=== PATIENT | female | born 1930 | race Caucasian/White ===

== ENCOUNTER 2016-12-08 15:59 | Inpatient (IN) ==
[2016-12-08] MEDS ORDERED: ZOFRAN IV ONE (16:14)
[2016-12-08] MEDS ORDERED: MORPHINE IV ONE (16:14)
--- NOTE | 2016-12-08 17:08 | Diag Imaging Result Doc PS360 ---
EXAM: XRAY PELVIS W/HIP 2-3VW RT INDICATION: fall, evaluation for left hip dislocation/fracture TECHNIQUE: 3 views COMPARISON: None. FINDINGS: There are degenerative changes at the acetabular roofs, worse on the right. There are extensive degenerative changes involving the lower lumbar spine. There is no discrete fracture, dislocation, or significant intrinsic osseous lesion involving the pelvis or right hip, otherwise. The surrounding soft tissues are essentially unremarkable. IMPRESSION: Chronic changes as described. No definite acute osseous abnormality involving the pelvis or right hip. Please see separate left femur radiograph report for details of a left hip fracture. Electronically signed by Mars Holland 12/08/2016 5:06 PM
[2016-12-08 17:11] LABS: INR 1.07; PROTIME 11.3 Seconds (9.2-11.7)
--- NOTE | 2016-12-08 17:11 | Diag Imaging Result Doc PS360 ---
EXAM: FEMUR MIN 2 VIEWS LEFT INDICATION: fall, evaluation for left hip dislocation/fracture TECHNIQUE: 4 views COMPARISON: None. FINDINGS: There is a mildly comminuted intertrochanteric fracture involving the left hip with a few mildly displaced fragments. No other discrete fracture or dislocation is appreciated. There are degenerative changes at the knee and left acetabular roof. The surrounding soft tissues are essentially unremarkable. IMPRESSION: Left hip intertrochanteric fracture as described. Electronically signed by Mars Holland 12/08/2016 5:08 PM
--- NOTE | 2016-12-08 17:12 | Diag Imaging Result Doc PS360 ---
EXAM: CHEST-1 VIEW INDICATION: Possible hip fracture TECHNIQUE: One view COMPARISON: 05/03/2014 FINDINGS: The lungs are grossly clear. There is no discrete pleural fluid collection or pneumothorax. The cardiomediastinal silhouette is essentially unremarkable accounting for magnification from AP technique. The central vasculature is grossly unremarkable. IMPRESSION: No evidence of acute pathology by plain radiograph. Electronically signed by Mars Holland 12/08/2016 5:10 PM
[2016-12-08 18:00] LABS: URINE SOURCE CATH
--- NOTE | 2016-12-08 18:01 | PROVIDER DOCUMENTATION ---
This chart was entered by Saige Melton Scribe, acting as scribe for Doroteo Patel Jr, MD. HPI-Musculoskeletal Pain/Inj - GENERAL Chief Complaint: Fall Stated Complaint: fall, L thigh pain Time Seen by Provider: 12/08/16 16:00 Source: patient, family (daughters) - HX OF PRESENT ILLNESS-MUSKULOSKELTAL Nature of Presenting Problem: Pt is 86 y/o F presents to the ED with L hip pain. Pt states was getting up to go to the bathroom and black out and fell on L hip. Pt's daughter states had an appointment with Dr. Reyes for phlebotomy. Pt's daughter states she is normally weak after. Quality of Pain: reports: aching Severity in ED: moderate Onset/Duration: just prior to arrival Timing: still present Modifying Factors: improves with: nothing Any recent injury?: Yes (fall ) Locality of Occurance: Home Similar Symptoms Previously?: Yes Recently seen or treated by another doctor?: No - FALL INJURY Location of Pain/Injury: reports: other (L hip) Pain Radiation: reports: no radiation Reason for Fall: reports: fainted Symptoms prior to fall:: reports: none Loss of Consciousness: brief (seconds) Injury Associated Symptoms: reports: unable to bear weight, weakness, trouble walking. denies: arm pain, back/neck pain, chest pain, diaphoresis, dizziness, headaches, joint pain, muscle aches, nausea, puncture wound, shortness of breath , sensory/motor loss, snap/crack/pop sensation, pain with inspiration, vomiting - HIP/PELVIS PAIN/INJURY Hip Pain Location: reports: hip (L) Pain Radiation: reports: no radiation Context / Method of Injury: reports: fall Associated Symptoms: reports: weakness in legs/feet (L). denies: loss of bladder control, loss of bowel control, lower back pain, muscle spasms, numbness in legs/feet, sensory/motor loss, tingling in legs/feet Review of Systems - Adult - REVIEW OF SYSTEMS - ADULT Constitutional: reports: no symptoms reported Eyes: reports: no symptoms reported Ears, Nose, Mouth & Throat: reports: no symptoms reported Cardiovascular: reports: no symptoms reported Respiratory: reports: no symptoms reported Gastrointestinal: reports: no symptoms reported Genitourinary: reports: no symptoms reported Musculoskeletal: reports: other (L hip pain). denies: back pain, neck pain Integumentary: reports: no symptoms reported Neurological: reports: syncope. denies: dizziness/vertigo, headache/migraines, seizure, slurred speech Psychiatric: reports: no symptoms reported Endocrine: reports: no symptoms reported Hematologic/Lymphatic: reports: no symptoms reported Allergic/Immunologic: reports: no symptoms reported All Other Systems: Reviewed and Negative Past History - Adult - PAST MEDICAL HISTORY-ADULT Review of Records: reports: Nursing Assessment Review, Medications Reviewed, Social history reviewed & non-contributory. Major Childhood Illnesses: reports: denies history Cardiovascular: reports: HTN Respiratory: reports: denies history Gastrointestinal: reports: denies history Obstetrical/Gynecological: reports: denies history Genitourinary: reports: denies history Musculoskeletal: reports: denies history Neurological: reports: denies history Endocrine/Immune: reports: Diabetes, other (polycythemia vera) Other Conditions: reports: denies history - PRIOR SURGERIES/PROCEDURES Surgical/Procedure History: reports: cholecystectomy - IMMUNIZATION STATUS Childhood Immunizations: See Nurse Assessment Flu Vaccine: See Nurse Assessment - FAMILY HISTORY Family History: reviewed, not pertinent - SOCIAL HISTORY Smoking: denies Substance Use: denies Living Situation: family Physical Exam-Injury Related - Physical Exam-Injury Related Initial Vital Signs Reviewed: Yes General Appearance: appears well, alert, no apparent distress Eyes: PERRL/EOMI, pink conjunctivae Head, Ears, Nose, Mouth & Throat: normocephalic/atraumatic, moist mucous membranes, normal ENT inspection Neck: non-tender, full range of motion, supple, normal inspection Respiratory: chest non-tender, lungs clear, normal breath sounds Cardiovascular: normal peripheral pulses, regular rate, rhythm Abdominal Exam: normal bowel sounds, non tender, soft Lymphatic: no adenopathy Back Exam: normal inspection, no CVA tenderness, no vertebral tenderness Extremity: deformity (L hip), tenderness (L hip), other (limited ROM to L hip). negative: normal range of motion, normal gait Integumentary: normal color, warm/dry Neurologic: grossly normal Psych/Mental Status: normal mood/affect, oriented x 3 Progress - PLAN OF CARE/RESULTS Progress/Plan/Lab Results: Vital Signs - 8 hr 12/08/16 16:13 Temperature 98.9 F Pulse Rate 71 Respiratory Rate 20 Blood Pressure 123/78 O2 Sat by Pulse Oximetry 97 Laboratory Results - last 24 hr 12/08/16 16:29 PT 11.3 INR 1.07 Orders Category Date Time Status CHEST-1 VIEW [RAD] Stat Exams 12/08/16 16:51 Completed FEMUR MIN 2 VIEWS LEFT [RAD] Stat Exams 12/08/16 16:16 Completed XRAY PELVIS W/HIP 2-3VW RT [RAD] Stat Exams 12/08/16 16:14 Completed PROTIME WITH INR [COAG] Stat Lab 12/08/16 16:29 Completed UA NIMS W/REFLEX CULT [URINALYSIS] Stat Lab 12/08/16 17:49 Received Morphine Med 12/08/16 16:14 Discontinued 2 mg IV NOW ONE Ondansetron [Zofran] Med 12/08/16 16:14 Discontinued 4 mg IV NOW ONE - EKG 1 Time of EKG reading by physician:: 15:59 EKG Read and Signed by:: Doroteo Patel Jr EKG Interpretation (*Must complete 3 of following elements*): Abnormal Rate: 71 Rhythm: accelerated junctional rhythm Comments: inferior infarct, age undetermined - XRAY 1 XRAY Study: Chest Impression: Normal XRAY Interpretation: no evidence of acute pathology by plain radiograph 2 XRAY: Left XRAY Study: Femur Impression: Abnormal XRAY Interpretation: left hip intertrochanteric fracture as described 3 XRAY Study: Pelvis, Hip Impression: Abnormal (no definite acute osseous abnormality involving the pelvis or right hip. please see separate left femur radiograph report for details for a left hip fracture.) XRAY Interpretation: chronic changes as described. - CONSULTS/PCP/HOSPITALIST Notification #1 *Consult/PCP/Hospitalist*: Dr. Correa Time Discussed: 17:15 Consult Disposition: Admit (NPO and admit to hospitalist.) #2 Consult: MARIIA Hernandez (Hospitalist) Time Discussed: 17:53 (Dr. Rodríguez accepted admit ) Reason/Comments: Dr. Patel consults with MARIIA Hernandez about admit of Pt Consult Disposition: Admit Departure - Departure Date of Disposition Decision: 12/08/16 Time of Disposition Decision: 17:31 DIAGNOSIS: Polycythemia vera Intertrochanteric fracture of left femur Qualifiers: Encounter type: initial encounter Fracture type: closed Qualified Code(s): S72.142A - Displaced intertrochanteric fracture of left femur, initial encounter for closed fracture Fall from standing Qualifiers: Encounter type: initial encounter Qualified Code(s): W19.XXXA - Unspecified fall, initial encounter Disposition: ADMITTED INPATIENT 09 Certified Medical Emergency: Emergent Condition: Good Referrals and Follow-Ups: Hany Haque MD [Primary Care Provider] - - Critical Care Note This patient required my direct & personal management of CC.: No This chart was documented by the indicated scribe, (Saige Melton Scribe) and accurately reflects the services I performed and decisions made by me, Doroteo Patel Jr, MD, as attested by the provider's signature.
[2016-12-08] MEDS ORDERED: MORPHINE IV PRN (18:02)
[2016-12-08] MEDS ORDERED: ZOFRAN IV PRN (18:02)
[2016-12-08] MEDS ORDERED: TYLENOL PO PRN (18:03)
[2016-12-08 18:04] LABS: BILIRUBIN URINE NEGATIVE (NEGATIVE); BLOOD URINE SMALL (NEGATIVE); COLOR YELLOW; GLUCOSE URINE NEGATIVE (NEGATIVE); LEUKOCYTES URINE LARGE (NEGATIVE); NITRITE URINE NEGATIVE (NEGATIVE); PH URINE 5.5; PROTEIN URINE 70 mg/dL (NEGATIVE); TURBIDITY URINE TURBID (CLEAR); UROBILINOGEN URINE NORMAL (NORMAL)
[2016-12-08 18:10] LABS: UR EPITHELIAL CELLS <10 /HPF (<10); URINE BACTERIA NEGATIVE /HPF; URINE CULTURE NEEDED? YES; URINE MICRO REVIEW NEEDED? YES; URINE WBC TNTC /HPF (<10)
[2016-12-08 18:15] LABS: URINE CASTS NONE SEEN; URINE CRYSTALS NONE SEEN
[2016-12-08 18:17] LABS: HEMATOCRIT 38.3 % (37.0-47.0); HEMOGLOBIN 10.3 g/dL (12.0-16.0); MCH 18.6 PG (27-31); MCHC 26.9 g/dL (33-37); MCV 69.3 FL (81-99); RBC 5.53 XMIL (4.2-5.4)
[2016-12-08] MEDS: NS 1,000 ML IV SCH (18:52)
[2016-12-08 18:55] LABS: ALBUMIN 3.8 g/dL (3.5-5.0); CALCIUM 8.6 mg/dL (8.8-10.2); POTASSIUM 4.3 mmol/L (3.5-5.1); TOTAL BILIRUBIN 0.23 mg/dL (0.20-1.00); TOTAL PROTEIN 6.4 g/dL (6.3-8.3)
[2016-12-08 19:28] LABS: FREE T4 1.21 ng/dL (0.93-1.70)
[2016-12-08] MEDS: HUMULIN R SUBQ SCH (22:02)
[2016-12-08] MEDS: ROCEPHIN 1 GM/NS 1 GM/50 ML IVPB IV SCH (22:41)
[2016-12-09] MEDS ORDERED: PNEUMOVAX 23 IM ONE (03:20)
[2016-12-09] MEDS: SODIUM CHLORIDE 0.9% INJ SCH (06:22)
[2016-12-09] MEDS: PROTONIX IV SCH (06:22)
[2016-12-09] MEDS: NS 1,000 ML IV SCH ×2 (06:23→19:48)
[2016-12-09] MEDS: HUMULIN R SUBQ SCH ×4 (06:47→21:04)
[2016-12-09 07:02] LABS: CALCIUM 8.4 mg/dL (8.8-10.2); POTASSIUM 4.6 mmol/L (3.5-5.1)
[2016-12-09 07:32] LABS: BASO% 0.9 % (0.0-0.8); EOS# 0.13 X1000 (0.0-0.7); EOS% 0.8 % (0.0-10.0); HEMATOCRIT 33.3 % (37.0-47.0); IMM GRAN# 0.04 X1000 (0.0-0.04); IMM GRAN% 0.3 % (0.0-0.5); LYMPH# 1.23 X1000 (1.2-3.4); LYMPH% 7.9 % (20.5-51.1); MANUAL DIFF NEEDED? NO; MCH 18.8 PG (27-31); MCV 69.4 FL (81-99); MONO# 0.95 X1000 (0.11-0.59); MONO% 6.1 % (1.7-9.3); MPV 9.8 FL (7.4-10.4); PLT 478 X1000 (130-400)
--- NOTE | 2016-12-09 11:48 | HISTORY AND PHYSICAL ---
PRIMARY CARE PHYSICIAN: Lee Haque MD ORCHARD HAND: Adalberto Reyes MD CHIEF COMPLAINT: "I passed out and fell and injured my at leg." HISTORY OF PRESENT ILLNESS: Ms. Gregorio is a 86-year-old female with a history of polycythemia vera, diabetes mellitus type 2 and hypertension who was brought to the ER after the patient passed out at home while trying to go to the bathroom. According to the patient's daughter, the patient had just returned from a phlebotomy session for her polycythemia vera. The patient was attempting to go to the bathroom when she blacked out for a few seconds. As a result, she fell on her left hip. Upon arrival to the ER an x-ray of the hip and pelvis was done that revealed a left hip fracture. Also of note the patient was noted to have a urinary tract infection. The patient denied having any chest pain, headache, dizziness or blurred vision prior to the events. The patient states that she has never passed out before. PAST MEDICAL HISTORY: 1. Polycythemia vera. 2. Hypertension. 3. Diabetes mellitus type 2. 4. Vitamin D deficiency. 5. Chronic leukocytosis. PAST SURGICAL HISTORY: Cholecystectomy. FAMILY HISTORY: Noncontributory, due to age. SOCIAL HISTORY: The patient currently lives alone at home and is completely independent. The patient does not use any walking aids. The patient denies any tobacco, alcohol or illicit drug use. ALLERGIES: No known drug allergies. HOME MEDICATIONS: 1. Toprol-XL 100 mg p.o. daily. 2. Hydroxyurea 500 mg p.o. daily. 3. Glipizide 10 mg p.o. daily. REVIEW OF SYSTEMS: All other review of systems are negative. Please refer to the history of present illness for pertinent positives and negatives. PHYSICAL EXAMINATION: VITAL SIGNS: Temperature 98.8 degrees, blood pressure 151/60, heart rate 79, respirations 16, O2 saturations 99% on room air. GENERAL: This is an elderly female, lying comfortably in bed, in no acute distress. SKIN: No rashes. No lesions. Normal capillary refill. HEENT: Head normocephalic, atraumatic. Eyes: Conjunctiva clear, EOMI, PERRLA. NECK: Supple. No JVD. No lymphadenopathy. No carotid bruits. LUNGS: Clear to auscultation bilaterally. No wheezes, no rales. No rhonchi. ABDOMEN: Positive bowel sounds. Soft, nontender, nondistended. EXTREMITIES: No edema. No cyanosis. No calf tenderness. NEUROLOGIC: The patient is alert and oriented x3. No focal neurologic deficits noted. LABORATORY DATA: White blood cell count 20, hemoglobin 10.3, hematocrit 38, platelets 547,000. INR 1.0. Sodium 138, potassium 4.3, chloride 99, CO2 24. BUN 21. Creatinine 1 , glucose 147, calcium 8.6, AST 17, ALT 10. Troponin less than 0.01, proBNP 439, vitamin D level 19.8, TSH 3.9, free T4 1.2. UA positive for leukocytes and urine WBC. IMAGING STUDIES: Femur x-ray reveals a left hip intertrochanteric fracture. Chest x-ray reveals no acute pathology. ASSESSMENT AND PLAN: 1. Syncope. This may be vasovagal in etiology. The patient will be placed on telemetry. Will also check a head ct. 2. Left hip fracture. We will consult Orthopedic Surgery for further management. 3. Urinary tract infection. A urine culture has been obtained. The patient will be started on IV Rocephin. 4. Leukocytosis. The patient does have a chronic leukocytosis; however, she does have a urinary tract infection. We will monitor the white blood cell count closely and treat the underlying infection. 5. Hypertension. Controlled. We will continue on metoprolol. 6. Diabetes mellitus type 2. We will monitor the patient's Accu-Cheks before meals and at bedtime. We will also cover the patient with sliding scale insulin. 8. Polycythemia vera. Aware. Managed by . Continue on hydroxyurea. 9. Deep venous thrombosis prophylaxis. We will place the patient on SCDs. cc: Raina Rodríguez MD [facility] SYSTEMTrish
--- NOTE | 2016-12-09 11:58 | CONSULTATION ---
DATE OF CONSULTATION: 12/09/2016 COMPLAINT: Left hip fracture. HISTORY: Patient experienced a fall today from a standing height after she "blacked out." She reports that she was at the cancer center today when she had some blood drawn secondary to polycythemia. She has to have blood drawn occasionally for this problem. She was noted to have an elevated white count more so than usual at the [facility]. Her blacking out was attributed to that and she was brought to the emergency room where evaluation workup with x-rays revealed a left hip intertrochanteric fracture as reported by the ER. PAST MEDICAL HISTORY: Polycythemia vera, diabetes and hypertension. SURGICAL HISTORY: Includes a cholecystectomy. FAMILY HISTORY/SOCIAL HISTORY: At time of my visit, she has several family members in the room. The patient does live alone. She does not drive. REVIEW OF SYSTEMS: She reports being in good health recently. Upon asking her about any urinary symptoms she reports that she has frequent urinary tract infections. She sometimes has a prolapsed bladder and has to wear a device for that. She denies any chest pain, shortness of breath, cold, cough, fevers or chills. PHYSICAL EXAMINATION: General: Pleasant female who is in no distress. HEENT: Conjunctivae pink. Mucous membranes are moist. Neck: Supple without JVD. Heart: Regular with a controlled rhythm. Her respirations are nonlabored. Abdomen: Soft. Extremities: Reveal left hip which is short and externally rotated. It is tender to touch and palpation or any attempt at range of motion. She is able to move the left ankle up and down on command. ASSESSMENT: Left hip intertrochanteric hip fracture. PLAN: I discussed with the patient the presence of a fracture. We discussed the risks, benefits, and options and indications of surgical intervention. After thorough discussion of the risks and benefits, and options indications patient understands and wished to proceed with left hip intramedullary nailing. I have discussed with patient the findings of urinary tract infection based on the UA that was done. I do feel that the urinary tract has infection present and feel that it would be safest to wait until she has had 24 hours of IV antibiotics before proceeding with surgery. I discussed this with the family. They have a good understanding of this. In light of the abnormal UA, we will postpone surgery in morning on Sunday morning until Sunday and let her get IV antibiotics. If she continues to maintain medical stability, we will plan for left hip intramedullary nailing with TFN nail Sunday. Indication home supply. cc: Christian Correa DO
--- NOTE | 2016-12-09 13:34 | Diag Imaging Result Doc PS360 ---
EXAM: HEAD W/O CONTRAST INDICATION: syncope COMPARISON: 05/14/2014 FINDINGS: There is mild stable atrophy. This is age-appropriate. There is no definite acute infarct given the limited sensitivity of CT versus MRI. There is no discrete intracranial mass, mass effect, or intracranial hemorrhage. The surrounding soft tissues and bony structures are essentially unremarkable. IMPRESSION: Stable very mild atrophy. No evidence of acute intracranial pathology. Electronically signed by Mars Holland 12/09/2016 1:32 PM
[2016-12-09] MEDS ORDERED: LACTULOSE PO ONE (16:33)
[2016-12-09] MEDS: ROCEPHIN 1 GM/NS 1 GM/50 ML IVPB IV SCH (21:15)
[2016-12-09] MEDS: MIRALAX PO SCH (21:16)
[2016-12-10] MEDS: NS 1,000 ML IV SCH ×3 (06:17→22:10)
[2016-12-10] MEDS: PROTONIX IV SCH (06:17)
[2016-12-10] MEDS: SODIUM CHLORIDE 0.9% INJ SCH (06:17)
[2016-12-10] MEDS: HUMULIN R SUBQ SCH ×4 (06:18→20:42)
[2016-12-10] MEDS: TOPROL XL PO SCH ×2 (07:41→08:17)
[2016-12-10] MEDS: MIRALAX PO SCH ×2 (08:15→20:49)
[2016-12-10] MEDS ORDERED: MARCAINE 0.25% PF/EPI 1:200,000 ONE (08:50)
[2016-12-10] MEDS ORDERED: DIPRIVAN 1% ONE (09:21)
[2016-12-10] MEDS ORDERED: FENTANYL ONE (09:21)
[2016-12-10] MEDS ORDERED: OXY IR PO PRN (09:29)
[2016-12-10] MEDS ORDERED: HALDOL IV PRN (09:29)
[2016-12-10] MEDS ORDERED: MILK OF MAGNESIA PO PRN (09:29)
[2016-12-10] MEDS ORDERED: ZOFRAN IV PRN (09:29)
[2016-12-10] MEDS ORDERED: MORPHINE IV PRN (09:29)
[2016-12-10] MEDS ORDERED: VANCOMYCIN IV PER PHARMACY MISC SCH (10:45)
[2016-12-10 11:31] LABS: EOS# 0.07 X1000 (0.0-0.7); EOS% 0.4 % (0.0-10.0); HEMATOCRIT 29.9 % (37.0-47.0); HEMOGLOBIN 8.1 g/dL (12.0-16.0); IMM GRAN# 0.08 X1000 (0.0-0.04); IMM GRAN% 0.4 % (0.0-0.5); LYMPH% 3.3 % (20.5-51.1); MANUAL DIFF NEEDED? YES; MCH 18.8 PG (27-31); MCHC 27.1 g/dL (33-37); MCV 69.5 FL (81-99); MONO# 1.42 X1000 (0.11-0.59); MONO% 7.8 % (1.7-9.3); MPV 9.2 FL (7.4-10.4); NEUT% 87.1 % (42.2-75.2); PLT 349 X1000 (130-400)
[2016-12-10 11:46] LABS: LYMPHS 2 % (21-51); MONO 1 % (1-9)
[2016-12-10 11:48] LABS: HYPOCHROM 3+
[2016-12-10 12:14] LABS: AGAP 10; BUN 10 mg/dL (8-22); CHLORIDE 101 mmol/L (98-107); COSMO 272; POTASSIUM 4.4 mmol/L (3.5-5.1); SODIUM 135 mmol/L (136-145); TCO2 24 mmol/L (25-35)
[2016-12-10] MEDS ORDERED: VANCOMYCIN 1,600 MG in NS 250 ML IV ONE (13:00)
[2016-12-10] MEDS: TYLENOL PO SCH ×3 (13:50→22:07)
--- NOTE | 2016-12-10 15:53 | OPERATIVE NOTE ---
PROCEDURE DATE: PREOPERATIVE DIAGNOSIS: Left hip intertrochanteric fracture. POSTOPERATIVE DIAGNOSIS: Left hip intertrochanteric fracture. PROCEDURE: Left hip and femur long trochanteric femoral nail by Synthes. SURGEON: Christian Correa DO. ANESTHESIA: General. IV FLUIDS: Lactated Ringer's. ESTIMATED BLOOD LOSS: 100 mL. COMPLICATIONS: None. DRAINS: None. ANTIBIOTICS: The patient was on Rocephin IV preop. BRIEF HISTORY: Patient with a history of a fall from a standing height, sustaining a left hip intertrochanteric fracture. The patient was counseled about risks, benefits, and options and indications of surgical intervention. The injury occurred on Sunday night. She had evidence of a urinary tract infection. She was given IV antibiotics for 24 hours. Her urine cultures at 24 hours were negative. Her white count had improved. The patient remained asymptomatic. After thorough discussion of the risks, benefits, options, and indications again, the patient and the family were counseled about the risk of infection, blood clots, stiffness, possible need for revision surgery, need for fracture healing over the next 6-8 weeks. After thorough discussion patient and family understood and wished to proceed. ORTHOPEDIC IMPLANTS: Synthes TFN long nail size 11 x 380 mm with 100 mm helical blade, set screw, and a distal locking screw measuring 44 mm. PROCEDURE IN DETAILS: The patient was taken to the operating room, where a time-out, site verification, and procedure were performed. The left hip was identified as the site for surgery, prepped and draped in sterile usual fashion. The left hip incision was marked using fluoro guidance. Sharp dissection performed through the skin. The tensor was split. Starting awl was placed on the tip of the greater trochanter under fluoroscopic guidance. This was placed into the femur itself. Ball-tipped guide was then placed to the level of the metaphyseal region of the knee. Measurement was obtained. The nail length was determined. The opening reamer was used and then flexible reamers reamed up to a size 12. A size 11 mm nail was then placed into the femoral canal carefully. Once this was seated in the final position, the extramedullary guide was used. A second incision was made just lateral to the lesser trochanter. The tensor was split just allowed the trocar to enter and be placed on bone. Once it was on bone and in good position, a threaded guidepin was placed into the femoral neck and head under fluoroscopic guidance in multiple views. This was placed in the center-center position. Next the measurement was obtained. The opening reamer was used and a helical blade was impacted into the femur. Once this was seated, the set screw was applied, the extramedullary guide was removed. Attention was then turned to the distal femur, where using the technique of perfect circles the distal femur static hole was identified. A small incision was made down to the level of the bone. A drill bit was used to create an opening across the nail. Measurement was obtained and a 44 mm Synthes distal locking screw was then placed. This had good bone purchase. Irrigation was performed. Final x-rays were obtained in multiple views. Traction had been removed from the bed prior to reduction. The tensor was closed with #1 Vicryl in a figure-of- eight fashion, the subcutaneous 2-0 Vicryl, and the skin was closed eliza. This was repeated on all incisions. Local anesthetic was administered. Sterile dressing was applied, local anesthetic, and the patient was taken to recovery in stable condition. Sponge and needle count correct x2. The patient tolerated the procedure well. No complications. cc: Christian Correa DO
--- NOTE | 2016-12-10 16:42 | PROGRESS NOTE ---
DATE: 12/10/2016 SUBJECTIVE: The patient underwent her hip repair today. No acute events noted overnight. OBJECTIVE: Vital Signs: Temperature 98.6 degrees, blood pressure 123/91, heart rate 94, respirations 20, O2 saturations 95% on room air. General: This is a elderly female lying in bed in no acute distress. Head: Normocephalic, atraumatic. Heart: S1, S2. Normal. Regular rate and rhythm. Lungs: Clear to auscultation bilaterally. No wheezes, no rales. No rhonchi. Abdomen: Positive bowel sounds. Soft, nontender, nondistended. Extremities: No edema. No cyanosis. No calf tenderness. LABS: White blood cell count 18, hemoglobin 8.1, hematocrit 29, platelets 349,000. BUN 10, creatinine 0.7, glucose 135. ASSESSMENT AND PLAN: 1. Status post left hip repair. Management as per the orthopedic surgeon. 2. Urinary tract infection. The urine culture is growing gram-positive cocci. Will switch the patient to vancomycin and await the final urine culture results. 3. Polycythemia vera. Aware. 4. Anemia. Will monitor the patient's hemoglobin and hematocrit closely. 5. Deep vein thrombosis prophylaxis. Continue on Lovenox. cc: Raina Rodríguez MD
[2016-12-10] MEDS: COLACE PO SCH (20:49)
--- NOTE | 2016-12-11 07:12 | EKG Report ---
Test Performed on : 12/08/2016 3:59:50 PM Test Reason : pre op Blood Pressure : / mmHG Vent. Rate : 071 BPM Atrial Rate : 071 BPM P-R Int : 000 ms QRS Dur : 088 ms QT Int : 412 ms P-R-T Axes : 000 -24 055 degrees QTc Int : 447 ms Accelerated Junctional rhythm. 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 has replaced Sinus rhythm. Unconfirmed Result
[2016-12-11 08:06] LABS: BASO% 1.2 % (0.0-0.8); EOS# 0.27 X1000 (0.0-0.7); EOS% 1.9 % (0.0-10.0); HEMATOCRIT 26.7 % (37.0-47.0); HEMOGLOBIN 7.1 g/dL (12.0-16.0); IMM GRAN# 0.05 X1000 (0.0-0.04); IMM GRAN% 0.3 % (0.0-0.5); LYMPH# 1.09 X1000 (1.2-3.4); LYMPH% 7.5 % (20.5-51.1); MANUAL DIFF NEEDED? YES; MCH 18.8 PG (27-31); MCHC 26.6 g/dL (33-37); MCV 70.6 FL (81-99); MONO% 8.3 % (1.7-9.3); MPV 10.4 FL (7.4-10.4); NEUT% 80.8 % (42.2-75.2); PLT 316 X1000 (130-400); RBC 3.78 XMIL (4.2-5.4)
[2016-12-11 08:08] LABS: AGAP 10; BUN 9 mg/dL (8-22); CALCIUM 7.5 mg/dL (8.8-10.2); CHLORIDE 105 mmol/L (98-107); COSMO 278; POTASSIUM 3.9 mmol/L (3.5-5.1); SODIUM 139 mmol/L (136-145); TCO2 24 mmol/L (25-35)
[2016-12-11] MEDS: TOPROL XL PO SCH (08:39)
[2016-12-11] MEDS: MIRALAX PO SCH ×2 (08:39→21:55)
[2016-12-11] MEDS: FERROUS SULFATE PO SCH (08:39)
[2016-12-11 08:45] LABS: BANDS 2 % (0-1); LYMPHS 4 % (21-51); MONO 14 % (1-9)
[2016-12-11 08:46] LABS: HYPOCHROM 2+; LARGE PLATELETS 1+
[2016-12-11] MEDS ORDERED: ROBINUL ONE (09:11)
[2016-12-11] MEDS ORDERED: ZOFRAN ONE (09:11)
[2016-12-11] MEDS ORDERED: LR 1,000 ML ONE (09:11)
[2016-12-11] MEDS ORDERED: NEO-SYNEPHRINE ONE (09:11)
[2016-12-11] MEDS ORDERED: SODIUM CHLORIDE 0.9% 20 ML ONE (09:11)
[2016-12-11] MEDS ORDERED: XYLOCAINE-MPF 2% ONE (09:11)
[2016-12-11] MEDS: HUMULIN R SUBQ SCH ×4 (10:51→23:23)
--- NOTE | 2016-12-11 11:19 | PROGRESS NOTE ---
DATE: 12/11/2016 SUBJECTIVE: The patient is resting comfortably in bed. She has no complaints. No acute events noted overnight. OBJECTIVE: Vital Signs: Temperature 99 degrees, blood pressure 123/59, heart rate 72, respirations 14, O2 saturation is 96% on room air. General: This is an elderly female, lying in bed, in no acute distress. HEENT: Head normocephalic and atraumatic. Heart: S1, S2 normal. Regular rate and rhythm. Lungs: Clear to auscultation bilaterally. No wheezes. No rales. No rhonchi. Abdomen: Positive bowel sounds. Soft, nontender, nondistended. Extremities: The dressings on the patient's left hip and leg are clean, dry, and intact. Neurologic: The patient is alert and oriented x3. Labs: White blood cell count 14, hemoglobin 7.1, hematocrit 26, platelets 316,000. Sodium 139, potassium 3.9, chloride 105, CO2 24, BUN 9, creatinine 0.7, glucose 123. ASSESSMENT AND PLAN: 1. Status post left hip and femur long trochanteric femoral nail. Management as per the orthopedic surgeon. 2. Urinary tract infection secondary to Staphylococcus hominis. We will continue on vancomycin for now. The patient can be transitioned to an oral antibiotic upon discharge. 3. Anemia. The patient recently underwent phlebotomy secondary to her polycythemia vera disorder. We will consult hematology and await their recommendations. 4. Polycythemia vera. Aware. 5. Leukocytosis. Improved. 6. Deep vein thrombosis prophylaxis. Continue on Lovenox. 7. Continue with physical therapy. 8. Disposition. The patient will be discharged to rehab once cleared by the orthopedic surgeon. cc: Raina Rodríguez MD
[2016-12-11] MEDS ORDERED: NS 500 ML ONE (13:35)
[2016-12-11] MEDS: TYLENOL PO SCH ×3 (14:03→23:12)
--- NOTE | 2016-12-11 20:11 | CONSULTATION ---
DATE OF CONSULTATION: 12/11/2016 ADMITTING PHYSICIAN: Dr. Raina Rodríguez. REQUESTING PHYSICIAN: Dr. Raina Rodríguez. We appreciate this consult. FAMILY PHYSICIAN: Dr. Hany Haque. CHIEF COMPLAINT: Polycythemia rubra vera. HISTORY OF PRESENT ILLNESS: Ms. Gregorio is a very pleasant 86-year-old female, well known to us, with a history of polycythemia rubra vera. She is treated with phlebotomies and actually underwent phlebotomy on the day of admission, 12/08/2016, secondary to a hemoglobin of greater than 11. Additionally, the patient is being treated with Hydrea. The patient reports that she went home after her phlebotomy and was going to the bathroom. The patient reports that she blacked out for a few minutes while going to the bathroom. She fell and hit her left hip. The patient presented to [facility] emergency department via EMS. Upon presentation, was noted to have a left hip fracture on x-ray. The patient has been admitted for repair, and actually underwent a left hip and femur nail placement on 12/12/2016. PAST MEDICAL HISTORY: 1. Polycythemia rubra vera. 2. Hypertension. 3. Diabetes mellitus type 2. 4. Vitamin D deficiency. 5. Chronic leukocytosis. PAST SURGICAL HISTORY: Cholecystectomy. FAMILY HISTORY: Negative for any hematologic or oncologic problems. SOCIAL HISTORY: The patient lives alone. She does not use tobacco, alcohol, or illicit drugs. MEDICATIONS ON ADMISSION: 1. Toprol-XL. 2. Hydroxyurea. 3. Glipizide. ALLERGIES: The patient has no known drug allergies. REVIEW OF SYSTEMS: A 14-point review of systems was obtained, and is negative, except for what was mentioned in the HPI. PHYSICAL EXAMINATION: General: Ms. Gregorio is a very pleasant 86-year-old female, sitting up in a chair, in no immediate distress. Vital Signs: Temperature 99.0 degrees, blood pressure 123/59, heart rate 72, respirations 14, O2 saturation 95% on room air. HEENT: Normocephalic, atraumatic. Mucous membranes are pale and moist. Sclerae is anicteric. Extraocular movements intact. Neck: Supple. Lungs: Clear to auscultation bilaterally. Chest expansion is equal bilaterally. Cardiovascular: S1, S2 is heard, without murmur, rub, or gallop. Abdomen: Soft, nondistended, nontender. Bowel sounds are positive in all quadrants. No rebound or guarding noted. Extremities: Without clubbing or cyanosis. She does have 2+ edema in her left lower extremity, and 1+ edema in her right lower extremity. Neurologic: The patient is awake, alert, oriented x3. She has no focal deficit at this time. LABORATORY DATA: Hemoglobin 7.1, hematocrit 26.7, white blood cell count is 14.44, platelets 316,000. Sodium 139, potassium 3.9, chloride 105, CO2 is 24, BUN 9, creatinine 0.7, glucose is 123. Calcium 7.5. Urinalysis reveals Staph hominis. Blood cultures are negative at [address] of the head is negative for any acute abnormality. ASSESSMENT AND PLAN: 1. Polycythemia rubra vera, with last phlebotomy being on 12/08/2016. Additionally, the patient is currently on Hydrea. We would monitor CBC and continue Hydrea at this time. 2. Anemia, with a hemoglobin of 7.1. We will transfuse 1 unit packed red blood cells today. 3. Urinary tract infection. Urine cultures are positive for Staph hominis. The patient is currently on vancomycin. 4. Left hip fracture. Orthopedics has been consulted. The patient is status post left hip and femur nail placement. 5. Diabetes mellitus type 2. Stable. On sliding scale insulin. 6. Leukocytosis, which is chronic secondary to #1, and increased in patient with a urinary tract infection at this time. 7. We will along with you and make further recommendations pending outcomes. The above reflects the history, exam, assessment, and plan of Dr. Reyes. Dictated by MARIIA Oviedo for Adalberto Reyes MD cc: MARIIA Oviedo MD
[2016-12-11] MEDS ORDERED: TUMS PO PRN (21:51)
[2016-12-11] MEDS: COLACE PO SCH (21:55)
[2016-12-11] MEDS: NS 1,000 ML IV SCH (23:12)
[2016-12-11] MEDS: PROTONIX IV SCH (23:12)
[2016-12-11] MEDS: LOVENOX SUBQ SCH (23:13)
[2016-12-12] MEDS ORDERED: VANCOMYCIN 1,300 MG in NS 250 ML IV SCH (01:00)
[2016-12-12] MEDS: TYLENOL PO SCH ×3 (06:14→21:45)
[2016-12-12] MEDS: LOVENOX SUBQ SCH (06:14)
[2016-12-12] MEDS: PROTONIX IV SCH (06:14)
[2016-12-12] MEDS: SODIUM CHLORIDE 0.9% INJ SCH (06:14)
[2016-12-12 06:26] LABS: AGAP 9; BUN 11 mg/dL (8-22); CALCIUM 7.8 mg/dL (8.8-10.2); CHLORIDE 105 mmol/L (98-107); COSMO 274; SODIUM 137 mmol/L (136-145); TCO2 23 mmol/L (25-35)
[2016-12-12 06:28] LABS: EOS# 0.26 X1000 (0.0-0.7); EOS% 1.7 % (0.0-10.0); HEMATOCRIT 30.5 % (37.0-47.0); HEMOGLOBIN 8.5 g/dL (12.0-16.0); IMM GRAN# 0.07 X1000 (0.0-0.04); IMM GRAN% 0.5 % (0.0-0.5); LYMPH# 1.01 X1000 (1.2-3.4); LYMPH% 6.5 % (20.5-51.1); MANUAL DIFF NEEDED? YES; MCH 19.8 PG (27-31); MCHC 27.9 g/dL (33-37); MCV 70.9 FL (81-99); MONO# 1.23 X1000 (0.11-0.59); MPV 9.9 FL (7.4-10.4); NEUT% 82.3 % (42.2-75.2); PLT 295 X1000 (130-400)
[2016-12-12] MEDS: NS 1,000 ML IV SCH ×2 (06:43→17:50)
--- NOTE | 2016-12-12 07:00 | PROGRESS NOTE ---
DATE: 12/12/2016 SUBJECTIVE: The patient is an 86-year-old female who is 2 days status post intramedullary nailing for a left intertrochanteric femur fracture per Dr. Correa. She is currently resting comfortably. OBJECTIVE: On physical exam, patient's dressing is intact. Her calf is soft. She has active dorsiflexion and plantarflexion. Her hemoglobin is 8.5 and hematocrit is 30.5. IMPRESSION: Postoperative day #2, status post intramedullary nailing of the left femur. PLAN: At this point, the patient will continue to mobilize with physical therapy. It is felt that the patient would benefit from inpatient rehabilitation. The patient and family are agreeable to this. We will change her dressing today. The patient is stable from an orthopedic standpoint. We will be available if needed. cc: Epifanio Madsen MD
[2016-12-12 07:16] LABS: HYPOCHROM 1+; LYMPHS 6 % (21-51); MONO 4 % (1-9)
[2016-12-12] MEDS: HUMULIN R SUBQ SCH ×4 (07:27→21:43)
[2016-12-12] MEDS: FERROUS SULFATE PO SCH (09:55)
[2016-12-12] MEDS: TOPROL XL PO SCH (09:55)
[2016-12-12] MEDS: MIRALAX PO SCH ×2 (09:56→21:45)
--- NOTE | 2016-12-12 15:25 | PROGRESS NOTE ---
DATE: 12/12/2016 SUBJECTIVE: When I evaluated this patient she was sitting on a chair, she states that she was able to walk with physical therapy. She is tolerating p.o. Family members at the bedside. OBJECTIVE: Vital Signs: Temperature 98.8 degrees, pulse 76, respiratory rate 18, blood pressure 136/63, O2 saturation 96 on room air. HEENT: Head normocephalic. No trauma. PERRLA. Neck: Supple. No JVD. No masses. Central trachea. Chest: Clear to auscultation. No wheezing. No rales. Abdomen: Soft, nontender, nondistended. No hepatosplenomegaly. Extremities: The dressing on the patient's left hip and distal thigh are clean, dry, and intact, she is complaining of mild pain in that area. Neurological: The patient is alert and oriented x3. She moves all 4 extremities. LABORATORY: WBC 15.4, hemoglobin 8.5, hematocrit 30.5, platelets 295,000. Sodium 137, potassium 4, chloride 105, bicarbonate 23, BUN 11, creatinine 0.7, glucose 118, calcium 7.8. ASSESSMENT AND PLAN: 1. Left intertrochanteric femur fracture status post long trochanteric femoral nail, continue with physical therapy pending placement. 2. Urinary tract infection secondary to Staphylococcus hominis. Continue with vancomycin for now, and this patient will be transitioned to an oral antibiotic upon discharge. 3. Anemia. This patient recently underwent phlebotomy secondary to her polycythemia vera disorder. Hematology/Oncology is on board and this patient received 1 unit of PRBC in- house. 4. Polycythemia vera. Aware. 5. Leukocytosis. Continue to monitor. Continue with antibiotics. 6. Deep vein thrombosis prophylaxis. Continue with Lovenox. 7. Physical deconditioning. Continue with physical therapy. This patient will be discharged to a rehab center. The sr. social media & mobile manager is on board. cc: Micha Grewal MD
[2016-12-12] MEDS: COLACE PO SCH (21:46)
[2016-12-13] MEDS ORDERED: PROTONIX SCH (02:44)
[2016-12-13 06:18] LABS: BASO% 1.4 % (0.0-0.8); EOS# 0.46 X1000 (0.0-0.7); EOS% 3.1 % (0.0-10.0); HEMOGLOBIN 8.3 g/dL (12.0-16.0); IMM GRAN# 0.07 X1000 (0.0-0.04); IMM GRAN% 0.5 % (0.0-0.5); LYMPH% 8.1 % (20.5-51.1); MANUAL DIFF NEEDED? NO; MCH 19.7 PG (27-31); MCHC 27.7 g/dL (33-37); MCV 71.3 FL (81-99); MONO% 6.1 % (1.7-9.3); MPV 10.5 FL (7.4-10.4); NEUT% 80.8 % (42.2-75.2); PLT 307 X1000 (130-400); RBC 4.21 XMIL (4.2-5.4)
[2016-12-13] MEDS: LOVENOX SUBQ SCH (06:31)
[2016-12-13] MEDS: TYLENOL PO SCH ×3 (06:31→22:05)
[2016-12-13] MEDS: HUMULIN R SUBQ SCH ×4 (06:32→22:06)
[2016-12-13] MEDS: PROTONIX PO SCH (06:32)
[2016-12-13] MEDS: TOPROL XL PO SCH (09:14)
[2016-12-13] MEDS: FERROUS SULFATE PO SCH (09:15)
[2016-12-13] MEDS: MIRALAX PO SCH ×2 (09:22→22:05)
--- NOTE | 2016-12-13 12:21 | PROGRESS NOTE ---
DATE: 12/13/2016 SUBJECTIVE: This patient states that she is feeling better, she is complaining of mild left hip pain, she is tolerating p.o. Family members at the bedside. OBJECTIVE: Vital Signs: Temperature 98.6 degrees, pulse 101, respiratory rate 14, blood pressure 144/68, O2 saturation 98 on room air. HEENT: Head normocephalic. No trauma. PERRLA. Neck: Supple. No JVD. No masses. Central trachea. Chest: Clear to auscultation. No wheezing. No rales. Cardiovascular: RRR. No murmurs. Abdomen: Soft, nontender, nondistended. No hepatosplenomegaly. Extremities: The dressing on this patient's left hip and distal thigh are dry, clean, and intact. She is complaining of mild pain in that area. Neurological: The patient is alert and oriented x3. She moves all 4 extremities. LABORATORY: WBC 14.8, hemoglobin 8.3, hematocrit 30, platelets 307,000. Glucose 120. ASSESSMENT AND PLAN: 1. Left intertrochanteric femur fracture status post lung trochanteric femoral nail, continue with physical therapy. Pending placement. 2. Urinary tract infection secondary to Staphylococcus hominis. Continue with vancomycin for now and this patient will be transitioned to an oral antibiotic upon discharge. 3. Anemia. This patient recently underwent phlebotomy secondary to her polycythemia vera disorder. Hematology/Oncology is on board and this patient received 1 unit of PRBC in house. 4. Polycythemia vera. Aware. 5. Leukocytosis continue to monitor. Continue with antibiotics. 6. Deep venous thrombosis prophylaxis. Continue with Lovenox. 7. Physical deconditioning. Continue with physical therapy. cc: Micha Grewal MD
[2016-12-13] MEDS ORDERED: VANCOMYCIN 1,300 MG in NS 250 ML IV SCH (13:00)
[2016-12-13] MEDS: COLACE PO SCH (22:05)
[2016-12-14] MEDS: LOVENOX SUBQ SCH (06:24)
[2016-12-14] MEDS: PROTONIX PO SCH (06:25)
[2016-12-14] MEDS: TYLENOL PO SCH ×2 (06:25→13:00)
[2016-12-14] MEDS: HUMULIN R SUBQ SCH ×2 (06:26→12:28)
[2016-12-14 06:43] LABS: BASO% 1.6 % (0.0-0.8); EOS# 0.47 X1000 (0.0-0.7); EOS% 3.4 % (0.0-10.0); HEMATOCRIT 30.6 % (37.0-47.0); HEMOGLOBIN 8.3 g/dL (12.0-16.0); IMM GRAN# 0.05 X1000 (0.0-0.04); IMM GRAN% 0.4 % (0.0-0.5); LYMPH% 8.6 % (20.5-51.1); MANUAL DIFF NEEDED? YES; MCH 19.7 PG (27-31); MCHC 27.1 g/dL (33-37); MCV 72.5 FL (81-99); MONO# 0.72 X1000 (0.11-0.59); MONO% 5.2 % (1.7-9.3); MPV 10.3 FL (7.4-10.4); NEUT% 80.8 % (42.2-75.2); PLT 339 X1000 (130-400); RBC 4.22 XMIL (4.2-5.4)
[2016-12-14 07:36] LABS: BANDS 10 % (0-1); EOS 2 % (1-10); LYMPHS 8 % (21-51); MONO 10 % (1-9)
[2016-12-14 07:37] LABS: HYPOCHROM 1+
[2016-12-14] MEDS: TOPROL XL PO SCH (08:18)
[2016-12-14] MEDS: FERROUS SULFATE PO SCH (08:18)
[2016-12-14] MEDS: MIRALAX PO SCH (08:20)
--- NOTE | 2016-12-14 11:24 | DISCHARGE SUMMARY ---
ADMISSION DATE: 12/08/2016 DISCHARGE DATE: 12/14/2016 CONSULTATIONS: 1. Dr. Mason with Orthopedics. 2. Dr. Adalberto Reyes with Hematology, Oncology. PERTINENT PROCEDURES: 1. Left hip and femur long trochanteric femoral nail. 2. Head CT showed stable very mild atrophy. No evidence of acute intracranial pathology. DISCHARGE DIAGNOSES: 1. Left intertrochanteric femur fracture status post long femoral nail. Continue with physical therapy. Place sent: Going to [facility]. 2. Urinary tract infection secondary to Staphylococcus hominis. Continue with p.o. antibiotics. 3. Anemia followed by Hematology/Oncology. Patient did receive 1 unit of PRBC in house, stable. 4. Polycythemia vera. Aware. 5. Physical deconditioning. Continue physical therapy at [facility]. HOSPITAL COURSE: Ms. Gregorio is an 86-year-old, female, with history of polycythemia vera, diabetes mellitus type 2, hypertension was brought to the ED after she passed out at home while trying to go to the bathroom. According to the daughter, the patient had just returned from a phlebotomy session for her polycythemia vera. She attempted to go to the restroom when she blacked out for a few seconds. As result she fell on her left hip. X-rays of the hip and pelvis revealed a left hip fracture. The patient was also noted to have a urinary tract infection. She was admitted with a surgical consult. Her CT of the head was negative. She was started on IV Rocephin. Patient did undergo a left hip and femur long trochanteric femoral nail by Dr. Mason. Dr. Reyes was consulted for patient's polycythemia vera. She was transfused with 1 unit of PRBCs and continued on her Hydrea. Patient's hemoglobin and hematocrit on discharge was 8.3 and 30. Vital signs: Temperature was 98.5 degrees, heart rate 71, respirations 20, blood pressure 155/70, O2 is 95% on room air. DISCHARGE DIET: Mechanical soft. DISCHARGE MEDICATIONS: As per Dr. Escamilla. FOLLOWUP: The patient will be discharged to [facility] reh. She will follow up with Dr. Mason after rehab as well as her primary care physician, Dr. Hany Haque. Dictated by MARIIA Tracy for Micha Grewal MD cc: MD Hany Navarro MD
[2016-12-14 12:06] VITALS: BP 148/70
[2016-12-14] MEDS ORDERED: SEPTRA DS PO SCH (21:00)
== END 2016-12-14 14:28 ==
LOC: ED 15:59 → 4N 18:45 → SUATTDRO 18:45 → 4N 19:02
PROVIDERS: ATTEND Internal Medicine

== ENCOUNTER 2017-02-27 19:35 | Inpatient (IN) ==
[2017-02-27] MEDS ORDERED: MORPHINE IV ONE (21:36)
[2017-02-27] MEDS ORDERED: ZOFRAN IV ONE (21:37)
--- NOTE | 2017-02-27 21:40 | Diag Imaging Result Doc PS360 ---
CHEST-1 VIEW - 02/27/2017 INDICATION: hip fx TECHNIQUE: COMPARISON: 12/08/2016 FINDINGS: The lungs are normally expanded and clear. Heart size and mediastinal contours are normal. No pneumothorax or pleural effusion. IMPRESSION: Negative exam. Electronically signed by Nestor Infante 02/27/2017 9:37 PM
--- NOTE | 2017-02-27 21:41 | Diag Imaging Result Doc PS360 ---
XRAY PELVIS W/HIP 2-3VW RT - 02/27/2017 INDICATION: fall/pain TECHNIQUE: Three views COMPARISON: 12/08/2016 FINDINGS: There is a new badly displaced intertrochanteric hip fracture on the right. There is also a new femoral neck stabilization tana on the left. There is a chronic, healing fracture at the left hip. No dislocation. IMPRESSION: New right hip fracture. Electronically signed by Nestor Infante 02/27/2017 9:39 PM
--- NOTE | 2017-02-27 21:50 | PROVIDER DOCUMENTATION ---
This chart was entered by Lazara Farley Scribe, acting as scribe for Tin Pichardo MD. HPI-Musculoskeletal Pain/Inj - GENERAL Chief Complaint: Hip Pain Stated Complaint: FALL/LEG PAIN Time Seen by Provider: 02/27/17 20:55 Source: patient - HX OF PRESENT ILLNESS-MUSKULOSKELTAL Nature of Presenting Problem: 86 Y/O F presents to ED with Extremity Injury. Pt states that she fell at home around 6pm while walking around with her walker. Pt recently broke her hip in December and is currently in rehab. Quality of Pain: reports: aching Severity in ED: moderate Onset/Duration: this evening Timing: still present Any recent injury?: Yes Locality of Occurance: Home Similar Symptoms Previously?: Yes Recently seen or treated by another doctor?: Yes - FALL INJURY Location of Pain/Injury: reports: lower extremity Pain Radiation: reports: no radiation Reason for Fall: reports: unknown Symptoms prior to fall:: reports: none Loss of Consciousness: no loss of consciousness Injury Associated Symptoms: reports: joint pain, unable to bear weight, trouble walking. denies: arm pain, back/neck pain, diaphoresis, nausea - HIP/PELVIS PAIN/INJURY Hip Pain Location: reports: hip (R) Pain Radiation: reports: no radiation Context / Method of Injury: reports: fall Associated Symptoms: reports: denies symptoms Review of Systems - Adult - REVIEW OF SYSTEMS - ADULT Constitutional: denies: chills, fever Eyes: reports: no symptoms reported Ears, Nose, Mouth & Throat: reports: no symptoms reported Cardiovascular: reports: no symptoms reported Respiratory: reports: no symptoms reported Gastrointestinal: reports: no symptoms reported Genitourinary: reports: no symptoms reported Musculoskeletal: reports: joint pain, joint swelling. denies: bone pain, back pain Integumentary: reports: no symptoms reported Neurological: reports: no symptoms reported Psychiatric: reports: no symptoms reported Endocrine: reports: no symptoms reported Hematologic/Lymphatic: reports: no symptoms reported Allergic/Immunologic: reports: no symptoms reported All Other Systems: Reviewed and Negative Past History - Adult - PAST MEDICAL HISTORY-ADULT Review of Records: reports: Old Records Reviewed, Nursing Assessment Review, Medications Reviewed, Social history reviewed & non-contributory. Major Childhood Illnesses: reports: denies history Cardiovascular: reports: HTN Respiratory: reports: denies history Gastrointestinal: reports: denies history Obstetrical/Gynecological: reports: denies history Genitourinary: reports: denies history Musculoskeletal: reports: denies history Neurological: reports: denies history Endocrine/Immune: reports: Diabetes, other (polycythemia vera) Other Conditions: reports: denies history - PRIOR SURGERIES/PROCEDURES Surgical/Procedure History: reports: cholecystectomy - IMMUNIZATION STATUS Childhood Immunizations: See Nurse Assessment Flu Vaccine: See Nurse Assessment - FAMILY HISTORY Family History: reviewed, not pertinent Physical Exam-Injury Related - Physical Exam-Injury Related General Appearance: alert, no apparent distress Eyes: pink conjunctivae, anisocoria Head, Ears, Nose, Mouth & Throat: moist mucous membranes, normal ENT inspection , TMs normal, pharynx normal Neck: supple, normal inspection Respiratory: lungs clear, normal breath sounds Cardiovascular: regular rate, rhythm, no edema, no gallop, no JVD, no murmur Abdominal Exam: non tender, soft Lymphatic: no adenopathy Back Exam: no CVA tenderness, no vertebral tenderness Extremity: swelling, tenderness, other (hip fx, shortening of right leg). negative: normal gait Integumentary: warm/dry Neurologic: grossly normal, no motor/sensory deficits Psych/Mental Status: normal mood/affect, normal thought content, normal thought process, oriented x 3 - Glascow Coma Score Best Eye Response ([place]): (4) open spontaneously Best Verbal Response ([place]): (5) oriented Best Motor Response ([place]): (6) obeys commands [place] Total: 15 Progress - PLAN OF CARE/RESULTS Progress/Plan/Lab Results: Vital Signs - 8 hr 02/27/17 20:19 Temperature 98.9 F Pulse Rate 65 Respiratory Rate 18 Blood Pressure 164/78 O2 Sat by Pulse Oximetry 97 Orders Category Date Time Status Linton Cath Insertion ORDERED Care 02/27/17 20:59 Active CHEST-1 VIEW [RAD] Stat Exams 02/27/17 20:49 Completed XRAY PELVIS W/HIP 2-3VW RT [RAD] Stat Exams 02/27/17 20:33 Completed CBC WITH ELECTRONIC DIFF [HEME] Stat Lab 02/27/17 20:56 Uncollected CMP [COMPREHENSIVE METABOLIC PANEL] [CHEM] Stat Lab 02/27/17 20:56 Uncollected TYPE & SCREEN [BBK] Stat Lab 02/27/17 20:58 Uncollected UA NIMS W/REFLEX CULT [URINALYSIS] Stat Lab 02/27/17 20:59 Uncollected Morphine Med 02/27/17 21:36 Discontinued 2 mg IV NOW ONE Ondansetron [Zofran] Med 02/27/17 21:37 Discontinued 4 mg IV NOW ONE EKG [EKG] Stat Ther 02/27/17 21:37 Ordered - XRAY 1 XRAY Study: Chest Impression: Normal XRAY Interpretation: NAD 2 XRAY: Right XRAY Study: Hip Impression: Abnormal XRAY Interpretation: intertrochanteric fracture Departure - Departure Date of Disposition Decision: 02/27/17 Time of Disposition Decision: 21:49 DIAGNOSIS: Intertrochanteric fracture of right femur Qualifiers: Encounter type: initial encounter Fracture type: closed Fracture alignment: displaced Qualified Code(s): S72.141A - Displaced intertrochanteric fracture of right femur, initial encounter for closed fracture Disposition: ADMITTED INPATIENT 09 Certified Medical Emergency: Emergent Condition: Fair Referrals and Follow-Ups: Hany Haque MD [Primary Care Provider] - - Critical Care Note This patient required my direct & personal management of CC.: No Attestation - Physician/ MONE Attestation Patient care was provided by Advanced Practice Provider:: No The physician spent face to face time with patient:: Yes Advanced Practice Provider documentation review:: Supervising physician onsite and consulted in the evaluation and care of this patient. The physician did have a face to face encounter with the patient. This chart was documented by the indicated scribe, (Lazara Farley Scribe) and accurately reflects the services I performed and decisions made by me, Tin Pichardo MD, as attested by the provider's signature.
[2017-02-27 22:19] LABS: BASO% 0.3 % (0.0-0.8); EOS# 0.07 X1000 (0.0-0.7); EOS% 0.3 % (0.0-10.0); HEMOGLOBIN 13.9 g/dL (12.0-16.0); IMM GRAN# 0.13 X1000 (0.0-0.04); IMM GRAN% 0.6 % (0.0-0.5); LYMPH# 0.92 X1000 (1.2-3.4); LYMPH% 4.4 % (20.5-51.1); MANUAL DIFF NEEDED? NO; MCH 22.4 PG (27-31); MCV 77.4 FL (81-99); MONO# 1.81 X1000 (0.11-0.59); MONO% 8.7 % (1.7-9.3); MPV 10.9 FL (7.4-10.4); NEUT% 85.7 % (42.2-75.2); PLT 376 X1000 (130-400)
[2017-02-27 22:38] LABS: ALBUMIN 4.1 g/dL (3.5-5.0); CALCIUM 9.1 mg/dL (8.8-10.2); POTASSIUM 4.1 mmol/L (3.5-5.1); TOTAL BILIRUBIN 0.3 mg/dL (0.20-1.00); TOTAL PROTEIN 6.8 g/dL (6.3-8.3)
[2017-02-27 22:49] LABS: URINE SOURCE CATH
[2017-02-27 23:00] LABS: BILIRUBIN URINE NEGATIVE (NEGATIVE); BLOOD URINE SMALL (NEGATIVE); COLOR ORANGE; GLUCOSE URINE NEGATIVE (NEGATIVE); LEUKOCYTES URINE LARGE (NEGATIVE); NITRITE URINE NEGATIVE (NEGATIVE); PROTEIN URINE 30 mg/dL (NEGATIVE); SP GRAVITY URINE 1.017; TURBIDITY URINE TURBID (CLEAR); UROBILINOGEN URINE NORMAL (NORMAL)
[2017-02-27 23:01] LABS: URINE MICRO REVIEW NEEDED? YES
[2017-02-27 23:05] LABS: UR EPITHELIAL CELLS <10 /HPF (<10); URINE BACTERIA NEGATIVE /HPF; URINE CULTURE NEEDED? YES; URINE RBC <10 /HPF (<10); URINE WBC TNTC /HPF (<10)
--- NOTE | 2017-02-27 23:27 | HISTORY AND PHYSICAL ---
PRIMARY CARE PHYSICIAN: Dr. Hany Haque REASON FOR ADMISSION: Right leg pain after fall. HISTORY OF PRESENT ILLNESS: Ms. Arleen Gregorio is an 86-year-old lady with past medical history of polycythemia rubra, hypertension, type 2 diabetes, vitamin D deficiency. She was last seen here in December of this year after sustaining a left hip fracture. Since then, she has been doing well and reports that shortly after her daughter had just departed from her house, she tried to get around with her walker, fell and landed on her right hip. She started to get up and noticed that there was pain in the right hip radiating to the anterior part of her thigh. She then managed to scoot up to where the phone was and called her daughter who came by and put her in the car and brought her in for further evaluation. The patient is denies any antecedent chest pain, palpitations, shortness of breath. She denies any dizziness prior to or since the fall. She denies making any contact with her head to the floor or any loss of consciousness. REVIEW OF SYSTEMS: Twelve system review is negative. Positive findings as per HPI except for occasional constipation. She states that her pain is sharp, but denies any focal weakness in her right lower extremity. ALLERGIES: No known allergies. MEDICATIONS: Medications reconciliation has not being addressed, but she was taking Tylenol, calcium carbonate, Colace, ferrous sulfate, glipizide, hydroxyurea, milk of magnesium, Toprol-XL, oxycodone, MiraLAX the last time she was here. FAMILY HISTORY: Hypertension. PAST SURGICAL HISTORY: Other than her left hip repair, she also says she has had a cholecystectomy. SOCIAL HISTORY: Lives alone. Does not smoke, drink, or use drugs. Uses a walker occasionally to get around. LABORATORY WORK AND DIAGNOSTICS: White count 20,000, hemoglobin and hematocrit 13 and 48, MCV 77, platelets 373,000, with 85% neutrophils. Chest x-ray negative for any infiltrate. Hip and pelvic x-rays: New right hip fracture, badly displaced intertrochanteric hip fracture on the right. Chemistry is pending at this time. Urinalysis and EKG are also pending. PHYSICAL EXAMINATION: VITAL SIGNS: Blood pressure 164/70, heart rate 65, respirations 18, temperature 98.9 degrees, 97% on room air. She is a pleasant elderly woman, who is not in acute distress. She is alert and oriented x3. Normal mood and affect. HEENT: Head is normocephalic, atraumatic. Eyes, JOSE RAUL EOMI. Sclerae anicteric , not pale. ENT and oropharyngeal examination shows moist oral mucosa. No oropharyngeal exudates or erythema. No central cyanosis visualized. CHEST: Clear to auscultation. Good air entry to both lung magallanes. CARDIOVASCULAR: First and second heart sounds heard. No gallops, 2/6 ejection systolic murmur in the aortic area. No rubs. Rhythm is regular. ABDOMEN: Full, soft, nontender. No mass or organomegaly. Bowel sounds normal. RECTAL: Deferred at this time. EXTREMITIES: Slightly externally rotated. Right lower extremity is slightly shorter than the left. Otherwise, pulses distally in both lower extremities are symmetrical. Have good volume. No clubbing or peripheral cyanosis. No edema. A few varicosities in both lower extremities distally. NEUROLOGICAL: Grossly intact. SKIN: Intact. No breakdown lesions or erythema. MUSCULOSKELETAL: Exam is grossly normal. ASSESSMENT: 1. Right hip fracture. 2. Polycythemia rubra vera. 3. Type 2 diabetes. 4. Hypertension. PLAN: We will give the patient a one time lose dose of heparin due to the fact that she has above- average risk of deep venous thrombosis. Dr. Degroot was notified and will see patient, if not tonight, tomorrow morning. We will treat patient symptomatically for constipation and pain control. Continue blood pressure medications with certain parameters to avoid bradycardia and hypotension. Her diabetes will be managed with a sliding scale. Blood work still pending and any gross abnormalities will be addressed this morning. cc: MD Hany Jarrett MD [facility]ITAL[facility]
[2017-02-28] MEDS ORDERED: MORPHINE IV PRN ×2 (01:46→16:26)
[2017-02-28] MEDS ORDERED: TYLENOL PO PRN (01:46)
[2017-02-28] MEDS ORDERED: ZOFRAN IV PRN ×2 (01:46→16:26)
[2017-02-28] MEDS ORDERED: NS 1,000 ML IV SCH (01:46)
[2017-02-28] MEDS ORDERED: OXY IR PO PRN ×2 (01:46→16:26)
[2017-02-28] MEDS ORDERED: HEPARIN SUBQ ONE (01:46)
[2017-02-28] MEDS: MIRALAX PO SCH ×3 (02:06→21:43)
[2017-02-28] MEDS: HUMALOG SUBQ SCH ×4 (06:39→21:46)
[2017-02-28 06:58] LABS: HEMATOCRIT 44.4 % (37.0-47.0); HEMOGLOBIN 12.8 g/dL (12.0-16.0); MCH 22.5 PG (27-31); MCHC 28.8 g/dL (33-37); MCV 78.2 FL (81-99); MPV 10.9 FL (7.4-10.4); POTASSIUM 4.7 mmol/L (3.5-5.1); RBC 5.68 XMIL (4.2-5.4)
--- NOTE | 2017-02-28 08:09 | CONSULTATION ---
DATE OF CONSULTATION: 02/28/2017 CHIEF COMPLAINT: Right hip pain. HISTORY OF PRESENT ILLNESS: Ms. Gregorio is an 86-year-old female who presents to the emergency department after a fall. She was found to have a hip fracture, and was admitted per the Hospitalist Service. She has a history of a left hip fracture back in December of this year, and was fixed by Dr. Correa with a trochanteric femoral nail. Unfortunately, she fell again yesterday and fractured this right side. Most of her pain is in the right side now, and she is not really complaining of any pain in the arms, and that left hip is actually feeling well. PAST MEDICAL HISTORY: Hypertension. PAST SURGICAL HISTORY: Left hip trochanteric femoral nail, cholecystectomy. ALLERGIES: No known drug allergies. MEDICATIONS: Toprol-XL, glipizide, ferrous sulfate, and MiraLAX. SOCIAL HISTORY: She denies any alcohol or tobacco use. REVIEW OF SYSTEMS: Positive for right hip pain. All other systems are essentially negative. PHYSICAL EXAMINATION: General: Ms. Gregorio is lying in bed in no acute distress. Head and Neck: Normocephalic, atraumatic. Lungs: Respirations are nonlabored. Cardiovascular: Regular rate. Abdomen: Nondistended. Extremities: Right lower extremity exam shows tenderness to palpation over the hip. No tenderness to palpation at the knee or the ankle. She has good dorsiflexion and plantar flexion of the toes and the ankle. Good 2+ DP pulse, and good sensation to light touch to the toes. No skin ulcerations or abrasions seen. RADIOGRAPHS: Two views of the right hip shows an intertrochanteric fracture with a little bit of subtrochanteric involvement. PLAN: I have discussed with Ms. Gregorio and her family about trochanteric femoral nailing for this right side. It would be about the same as what she had on the left. I went over with them, the procedure, risks, benefits, and potential complications. Risks include, but are not limited to, infection, wound healing problems, damage to nerves, arteries, veins, numbness, malunion, nonunion, hardware-related issues, continued pain, DVT, and anesthesia-related risks. After discussing these with the patient, she expressed understanding and wished to proceed, so will get her on the schedule for today for a trochanteric femoral nail. She will be n.p.o. cc: Rory Degroot MD
[2017-02-28] MEDS: TOPROL XL PO SCH (08:33)
[2017-02-28] MEDS ORDERED: XYLOCAINE-MPF 2% ONE (10:59)
[2017-02-28] MEDS ORDERED: AMIDATE ONE (10:59)
[2017-02-28] MEDS ORDERED: ROBINUL ONE (10:59)
[2017-02-28] MEDS ORDERED: KEFZOL 1 GM/D5W 1 GM/50 ML IVPB ONE (11:39)
[2017-02-28] MEDS ORDERED: NEOSPORIN OINTMENT PACKET ONE (11:57)
[2017-02-28] MEDS ORDERED: OFIRMEV 1000 MG/ISOTONIC SOLN 1,000 MG/100 ML BOTTLE ONE (11:57)
[2017-02-28] MEDS ORDERED: FENTANYL ONE (12:15)
[2017-02-28] MEDS ORDERED: EPHEDRINE ONE (13:00)
--- NOTE | 2017-02-28 13:34 | OPERATIVE NOTE ---
PROCEDURE DATE: 02/28/2017 PREOPERATIVE DIAGNOSIS: Right intertrochanteric/subtrochanteric femur fracture. POSTOPERATIVE DIAGNOSIS: Right intertrochanteric/subtrochanteric femur fracture. PROCEDURE PERFORMED: Right trochanteric femoral nailing. SURGEON: Rory Degroot MD EXTERNAL GRINDER: MARIIA Dyer ANESTHESIA: General with LMA. ESTIMATED BLOOD LOSS: 250 mL. IMPLANT: Synthes 11 x 380 femoral nail and size 100 helical blade. DISPOSITION: To PACU, hemodynamically stable. INDICATIONS FOR PROCEDURE: Ms. Arleen Gregorio is an 86-year-old female with past medical history significant for polycythemia and a left hip fracture that was fixed with trochanteric femoral nailing back in December. She presented to the emergency department after another fall with right hip pain. She was admitted per the hospitalist service after they diagnosed her with a hip fracture. She was made n.p.o. after midnight. I discussed with her and her family this morning about trochanteric femoral nailing, which would be similar to her other side. We went over the procedure, risks, benefits, and potential complications, and she expressed understanding and wished to proceed. DESCRIPTION OF PROCEDURE: Ms. Gregorio was identified in the preoperative holding area. The right hip was marked out as the correct surgical site. She was then wheeled to the operating room and placed supine on the operating table. All bony prominences were well padded. She was induced under general anesthesia. An LMA was placed. She was placed on the traction bed and a little bit of traction was placed across the right lower extremity. The right lower extremity was then prepped with chlorhexidine gluconate scrub and then ChloraPrep and draped in the normal sterile fashion. A surgical pause was performed. We identified the correct patient, the correct side, and the correct procedure. Preoperative antibiotics were given, which was 1 g of IV Ancef. We started with fluoroscopic imaging, which showed that we had a good reduction of our intertrochanteric fracture. We actually had to put her leg out in just a little bit of abduction to close down the fracture gap and get her back well aligned. After we did this, we made a small incision on the superior aspect of her hip above her trochanter. Dissection was carried down through the deep tissue. I was able to get my starting wire in good position and then reamed over it. I then placed my a ball-tip guidewire down. We sequentially reamed, starting with an 8.5 opening reamer, up to a size 12.5. We started reaming. She did have some increased bleeding, more than normal. I did not think it was from our approach because we did not have a lot of bleeding when we made our approach, but I did check on that area just to make sure that there was not a bleeder that I could see and it tended to be all very deep. I think it was coming from the bone itself, especially with her history of polycythemia. I felt that most of her bleeding was coming from the bone reamings. I finished reaming and then passed an 11 x 380 size femoral nail down and that actually did help out that bleeding; by passing the nail down. I then passed my guidewire up the femoral neck. Her neck angle was a little bit higher than the 135 that we were using, but I was able to get it in good position on both AP and lateral views. I then passed a helical blade up and locked it with the nail. I then took off the outrigger. Final images were taken at the hip, which showed we had very good reduction on both AP and lateral views of our fracture and our hardware was in good position as well. We then came distally and I placed 2 interlocking screws, 1 in the dynamic hole and 1 in the static hole under perfect [place] technique, and fluoroscopic imaging showed that we had good position of those on AP and lateral views. At this point, all the incisions were irrigated copiously with normal saline. I closed that deep layer very well at the hip in layered closure with 0 Vicryl and then 2-0 Vicryl for the subcu and eliza on the skin. We did that for each wound and then Adaptic, 4 x 4's, and island dressings were placed. The patient was taken out of traction, moved to her own bed, and taken to the PACU in stable condition. Postoperatively, the patient will be weightbearing as tolerated on the right lower extremity. I will check on her in the morning. cc: Rory Degroot MD
[2017-02-28] MEDS ORDERED: NS 1,000 ML ONE (15:05)
[2017-02-28] MEDS ORDERED: MILK OF MAGNESIA PO PRN (16:26)
[2017-02-28] MEDS ORDERED: HALDOL IV PRN (16:26)
[2017-02-28] MEDS: NS 1,000 ML IV SCH ×2 (17:29→21:43)
[2017-02-28] MEDS: TYLENOL PO SCH (17:29)
[2017-02-28] MEDS: KEFZOL 1 GM/D5W 1 GM/50 ML IVPB IV SCH (19:19)
[2017-02-28] MEDS ORDERED: COLACE PO SCH (21:00)
[2017-02-28] MEDS: COLACE PO SCH (21:43)
[2017-03-01] MEDS: KEFZOL 1 GM/D5W 1 GM/50 ML IVPB IV SCH ×2 (03:34→11:40)
[2017-03-01] MEDS: TYLENOL PO SCH ×3 (03:42→17:58)
[2017-03-01] MEDS: NS 1,000 ML IV SCH ×2 (05:17→16:58)
[2017-03-01] MEDS: LOVENOX SUBQ SCH (05:18)
[2017-03-01 06:34] LABS: HEMATOCRIT 30.6 % (37.0-47.0); HEMOGLOBIN 8.7 g/dL (12.0-16.0)
[2017-03-01 06:52] LABS: CALCIUM 7.6 mg/dL (8.8-10.2); POTASSIUM 4.5 mmol/L (3.5-5.1)
--- NOTE | 2017-03-01 07:46 | PROGRESS NOTE ---
DATE: 03/01/2017 SUBJECTIVE: Ms. Gregorio is lying in the bed this morning. She has complained of a little bit of ankle pain last night, but it seems to have resolved mostly by this morning. Still complaining of a little bit of pain on this right hip. OBJECTIVE: Right lower extremity exam: Incisions are clean, dry, and intact. She is neurovascular intact to right lower extremity, with a 2+ DP pulse. Good sensation to light touch to the toes. Good movement of the foot. Palpated all around her ankle, and she really did not have any tenderness to palpation to the hindfoot, the ankle, midfoot, or forefoot. ASSESSMENT: Status post right trochanteric femoral nailing for intertrochanteric fracture. PLAN: I think Ms. Gregorio is doing well. I think the ankle pain was just transient last night. She seems better this morning. I do not think we need an x-ray at this time. If she does start to hurt a lot when she is up with physical therapy putting weight on it, we can get an x-ray at that time. She can be weightbear as tolerated, right lower extremity. She will be on Lovenox for DVT prophylaxis. cc: Rory Degroot MD
[2017-03-01] MEDS: HUMALOG SUBQ SCH ×4 (09:17→20:47)
[2017-03-01] MEDS: MIRALAX PO SCH ×2 (09:18→20:47)
[2017-03-01] MEDS: TOPROL XL PO SCH (09:18)
[2017-03-01] MEDS: FERROUS SULFATE PO SCH (09:18)
--- NOTE | 2017-03-01 11:13 | PROGRESS NOTE ---
DATE: 03/01/2017 SUBJECTIVE: This patient states that she is feeling fine. She is not complaining of pain at this moment. Physical therapy is about to see her. The social media marketer on board and we are trying to get a rehab center placement for her. Family members at the bedside. All their questions were answered. OBJECTIVE: Vital Signs: Temperature 98.7 degrees, pulse 72, respiratory rate 16, blood pressure 102/50, O2 saturation 96 on room air. HEENT: Head normocephalic. No trauma. PERRLA. Neck: Supple. No JVD. No masses. Central trachea. Chest: Clear to auscultation. No wheezing. No rales. Abdomen: Soft, nontender, nondistended. No hepatosplenomegaly. Extremities: No edema. No clubbing. No cyanosis. She has a right hip incision that looks that is covered and looks clean and dry. Neurological: This patient is alert and oriented x3. She moves all 4 extremities. LABORATORY: WBC 8.7, hemoglobin 30.6. Sodium 136, potassium 4.5, chloride 103, bicarbonate 26, BUN 22, creatinine 1.1. Glucose 115, calcium 7.6. ASSESSMENT AND PLAN: 1. Right hip fracture status post right trochanteric femoral nailing. Will continue with physical therapy, we are trying to get placement in a rehab center for this patient, tomorrow hopefully we will remove the Linton catheter. 2. Polycythemia rubra. Aware. This patient has been on hydroxyurea at home and I will not continue with this at this moment. Her hemoglobin is low. But probably we will start this in a few days. 3. Type 2 diabetes. Continue with the same treatment. Stable. 4. Hypertension. Continue with the same management. 5. Constipation. Continue with stool softener. 6. Deep vein thrombosis prophylaxis. This patient has been placed on Lovenox daily. cc: Micha Grewal MD
[2017-03-01] MEDS: COLACE PO SCH (20:46)
[2017-03-02] MEDS: TYLENOL PO SCH ×4 (01:26→23:59)
[2017-03-02] MEDS: LOVENOX SUBQ SCH (05:07)
[2017-03-02 06:00] LABS: HEMATOCRIT 26.2 % (37.0-47.0); HEMOGLOBIN 7.5 g/dL (12.0-16.0)
[2017-03-02 06:08] LABS: AGAP 13; BUN 19 mg/dL (8-22); CALCIUM 7.5 mg/dL (8.8-10.2); CHLORIDE 104 mmol/L (98-107); COSMO 280; POTASSIUM 4.4 mmol/L (3.5-5.1); SODIUM 139 mmol/L (136-145); TCO2 22 mmol/L (25-35)
[2017-03-02] MEDS: HUMALOG SUBQ SCH ×4 (06:39→20:34)
[2017-03-02] MEDS: NS 1,000 ML IV SCH ×2 (06:43→16:38)
[2017-03-02] MEDS: FERROUS SULFATE PO SCH (08:27)
[2017-03-02] MEDS: TOPROL XL PO SCH (08:30)
[2017-03-02] MEDS: MIRALAX PO SCH ×2 (08:30→20:45)
--- NOTE | 2017-03-02 14:16 | PROGRESS NOTE ---
DATE: 03/02/2017 SUBJECTIVE: This patient is feeling fine. She is complaining of mild pain at the level of the surgical wound. Otherwise, she is okay. Her hemoglobin and hematocrit today is low so I transfused this patient with 1 PRBC and she tolerated that. 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 Reyes to evaluate this patient. OBJECTIVE: Vital Signs: Temperature 98.4 degrees, pulse 71, respiratory rate 18, blood pressure 125/61, O2 saturation 100% on room air. HEENT: Head normocephalic. No trauma. PERRLA. Neck: Supple. No JVD. No masses. Central trachea. Chest: Clear to auscultation. No wheezing. No rales. Abdomen: Soft, nontender, nondistended. No hepatosplenomegaly. Extremities: No edema. No clubbing. No cyanosis. She has a right hip incision that looks and is covered. It is clean and dry. Neurological: The patient is alert, oriented x3. She moves all 4 extremities. LABORATORY: Hemoglobin 7.5, hematocrit 26.2, sodium 139, potassium 4.4, chloride 104, bicarbonate 22, BUN 19, creatinine 0.7 glucose 105, calcium 7.5. ASSESSMENT AND PLAN: 1. Right hip fracture status post right trochanteric femoral nailing. We will continue with physical therapy. We are trying to get placement for this patient. Linton catheter had been removed. Probably she will go for rehab at the beginning of next week. 2. Polycythemia rubra vera. Aware. I have consulted Dr. Reyes for evaluation. At this moment, this patient hemoglobin is low and I transfused her. 3. Anemia. Her hemoglobin is 7.5. I will give her 1 unit of PRBC. 4. Type 2 diabetes. Continue with the same treatment. 5. Hypertension continue with the same management. Stable. 6. Constipation. Continue with stool softener. 7. Physical deconditioning. Physical therapy on board. Continue with the same treatment. 8. DVT prophylaxis. This patient has been placed on Lovenox daily.. cc: Micha Grewal MD
[2017-03-02] MEDS: COLACE PO SCH (20:45)
[2017-03-03] MEDS: LOVENOX SUBQ SCH (06:03)
[2017-03-03] MEDS: HUMALOG SUBQ SCH ×4 (06:04→21:13)
[2017-03-03 06:32] LABS: BASO% 0.9 % (0.0-0.8); EOS% 2.3 % (0.0-10.0); HEMATOCRIT 30.2 % (37.0-47.0); HEMOGLOBIN 8.7 g/dL (12.0-16.0); IMM GRAN# 0.14 X1000 (0.0-0.04); IMM GRAN% 1.1 % (0.0-0.5); LYMPH# 1.45 X1000 (1.2-3.4); LYMPH% 10.9 % (20.5-51.1); MANUAL DIFF NEEDED? YES; MCH 23.3 PG (27-31); MCHC 28.8 g/dL (33-37); MONO# 1.16 X1000 (0.11-0.59); MONO% 8.8 % (1.7-9.3); MPV 10.4 FL (7.4-10.4); PLT 612 X1000 (130-400); RBC 3.73 XMIL (4.2-5.4)
[2017-03-03 06:33] LABS: AGAP 11; BUN 15 mg/dL (8-22); CALCIUM 7.9 mg/dL (8.8-10.2); CHLORIDE 106 mmol/L (98-107); COSMO 284; POTASSIUM 4.1 mmol/L (3.5-5.1); SODIUM 142 mmol/L (136-145); TCO2 25 mmol/L (25-35)
[2017-03-03 07:26] LABS: EOS 4 % (1-10); LYMPHS 14 % (21-51); MONO 4 % (1-9)
[2017-03-03] MEDS ORDERED: HYDREA PO SCH ×2 (09:00)
[2017-03-03] MEDS: FERROUS SULFATE PO SCH (09:39)
[2017-03-03] MEDS: TYLENOL PO SCH ×2 (09:39→17:10)
[2017-03-03] MEDS: NS 1,000 ML IV SCH ×2 (09:39→17:11)
[2017-03-03] MEDS: MIRALAX PO SCH ×2 (09:39→22:18)
[2017-03-03] MEDS: TOPROL XL PO SCH (09:39)
[2017-03-03 11:12] LABS: IRON SATURATION 10 %; TIBC 167 ug/dL; TOTAL IRON 17 ug/dL (49-151); UNBOUND IRON 150 ug/dL (112-346)
--- NOTE | 2017-03-03 12:11 | CONSULTATION ---
DATE OF CONSULTATION: 03/03/2017 CHIEF COMPLAINT: Polycythemia rubra vera. HISTORY OF PRESENT ILLNESS: Ms. Arleen Gregorio is a very pleasant 86-year-old female with a history of polycythemia rubra vera, well known to Dr. Reyes and followed closely in clinic for history of polycythemia rubra vera, as well as leukocytosis and thrombocytosis. The patient suffered a recent left hip fracture in December of this year. She was undergoing rehabilitation and doing well, and actually improved to the point of walking with a walker. The patient reports a fall injuring her right hip and suffered a right hip fracture. The patient was admitted for trochanteric femoral nailing and is doing well status post surgery. The patient also has a history of polycythemia rubra vera with leukocytosis and thrombocytosis. She is monitored closely in clinic for evaluation of CBC and iron, as well as ferritin. The patient is currently being treated with Hydrea 500 mg daily and has been stable. She is presently lying supine in bed. She denies any significant complaints other than pain to her right hip. PAST MEDICAL HISTORY: 1. Polycythemia rubra vera. 2. Thrombocytosis/leukocytosis. 3. Osteoarthritis. 4. Hypertension. 5. Diabetes mellitus type 2. 6. Vitamin D deficiency. PAST SURGICAL HISTORY: Left hip repair, cholecystectomy, right hip repair. FAMILY HISTORY: Significant for hypertension and negative for hematologic or oncologic problems. SOCIAL HISTORY: The patient does not use tobacco, alcohol or illicit drugs. She lives alone and uses a walker for ambulation. MEDICATIONS ON ADMISSION: 1. Tylenol. 2. Calcium carbonate. 3. Colace. 4. Ferrous sulfate. 5. Glipizide. 6. Hydroxyurea. 7. Milk of magnesia. 8. Toprol-XL. 9. Oxycodone. 10. MiraLAX. ALLERGIES: No known allergies. REVIEW OF SYSTEMS: A 14-point review of systems was obtained and is negative except as mentioned in the HPI. PHYSICAL EXAM: Ms. Gregorio is a very pleasant 86-year-old female, lying supine in bed in no immediate distress.Vital Signs: Temperature 98.6 degrees, blood pressure 151 /76, heart rate 98, and respirations of 20, O2 saturation 98% on room air. HEENT: Normocephalic, atraumatic. Mucous membranes are pale and moist. Sclerae is anicteric. Extraocular movements are intact. Neck: Supple. Lungs: Clear to auscultation bilaterally. Chest expansion is equal bilaterally. CV: S1, S2 is heard without murmur, rub or gallop. Abdomen: Soft, nondistended, nontender. Bowel sounds are positive in all quadrants. No rebound or guarding noted. Extremities: With 1+ bilateral lower extremity edema. Dermatologic: No rashes, bruises or lesions. Neurologic: The patient is awake, alert, and oriented x3. She has no focal deficit at this time. LABORATORY DATA: Hemoglobin 8.7, hematocrit 30.2, white blood cell count 13.25 , platelets 612,000. Sodium 142, potassium 4.1, chloride 106, CO2 is 25, BUN 15, creatinine 0.7, and glucose is 97, calcium is 7.9. ASSESSMENT AND PLAN: 1. Polycythemia rubra vera with a stable hemoglobin of 8.7, I will check an iron , TIBC and ferritin. We will continue to monitor. 2. Right hip fracture/recent left hip fracture in December of 2016. The patient is status post trochanteric femoral nailing of her right hip and is doing well at this time. Treatment per surgery. 3. Diabetes mellitus type 2. Stable with a glucose of 97, we will continue current medications. 4. Hypertension is stable at this time with a blood pressure of 151/76. Continue antihypertensives as ordered. 5. Leukocytosis and thrombocytosis, stable at this time. White blood cell count 13.25, platelets 612,000. Would continue Hydrea 500 mg daily and monitor CBC. 6. We will follow along with you and make further recommendations pending outcomes. The above reflects the history, exam, assessment, and plan of Dr. Givens. Dictated by MARIIA Oviedo for Yen Givens MD cc: MARIIA Oviedo MD I have examined the patient and reviewed the chart and agree with the above A/P. Yen VASQUEZ
--- NOTE | 2017-03-03 17:20 | PROGRESS NOTE ---
DATE: 03/03/2017 SUBJECTIVE: This patient is feeling about the same. She is not complaining of any specific pain but mild pain at the level of the surgical wound. Otherwise she is okay he. Yesterday I consulted hematology/oncology who recommended to continue with the same management. No changes. OBJECTIVE: Vital Signs: Temperature 98.6 degrees, pulse 98, respiratory rate 20, blood pressure 151/76, oxygen saturation 96 on room air. HEENT: Head normocephalic. No trauma. PERRLA. Neck: Supple. No JVD. No masses. Central trachea. Chest: Clear to auscultation. No wheezing. No rales. Abdomen: Soft, nontender, nondistended. No hepatosplenomegaly. Extremities: No edema. No clubbing. No cyanosis. She has a right hip incision that looks clean, is covered with a clean dressing and dry. Neurologic: The patient is alert and oriented x3. No focal neurological deficits. LABORATORY: WBC 13.2, hemoglobin 9.7, hematocrit 30.2, platelets 612,000. Sodium 142, potassium 4.1, chloride 106, bicarbonate 25, BUN 15, creatinine 0.7, glucose 97, calcium 7.9. ASSESSMENT AND PLAN: 1. Right hip fracture status post trochanteric femoral nailing. Will continue with physical therapy. Hopefully at the beginning of the next week this patient is going to be able to go to a rehab center. 2. Polycythemia rubra vera aware. I have consulted hematology/oncology, they already evaluated this patient and they will continue with the same management. 3. Anemia. Her hemoglobin A1c yesterday was 7.5 and she received 1 unit of packed red blood cells and now the hemoglobin improved to 8.7. Will continue to monitor. 4. Type 2 diabetes. Continue with the same management. 5. Hypertension. Continue with the same treatment. Stable. 6. Constipation. Continue with stool softener. 7. Physical deconditioning. Physical therapy on board. Continue with the same treatment. 8. Deep vein thrombosis prophylaxis. This patient has been placed on Lovenox. cc: Micha Grewal MD
[2017-03-03] MEDS: COLACE PO SCH (22:18)
[2017-03-04] MEDS: TYLENOL PO SCH ×4 (02:56→23:41)
[2017-03-04] MEDS: LOVENOX SUBQ SCH (05:51)
[2017-03-04 06:03] LABS: EOS# 0.41 X1000 (0.0-0.7); HEMATOCRIT 31.2 % (37.0-47.0); HEMOGLOBIN 9.1 g/dL (12.0-16.0); IMM GRAN# 0.17 X1000 (0.0-0.04); IMM GRAN% 1.2 % (0.0-0.5); LYMPH# 1.42 X1000 (1.2-3.4); LYMPH% 10.4 % (20.5-51.1); MANUAL DIFF NEEDED? YES; MCH 23.5 PG (27-31); MCHC 29.2 g/dL (33-37); MCV 80.6 FL (81-99); MONO# 1.12 X1000 (0.11-0.59); MONO% 8.2 % (1.7-9.3); MPV 10.1 FL (7.4-10.4); NEUT% 76.2 % (42.2-75.2); PLT 747 X1000 (130-400); RBC 3.87 XMIL (4.2-5.4)
[2017-03-04 06:38] LABS: AGAP 11; BUN 16 mg/dL (8-22); CALCIUM 8.1 mg/dL (8.8-10.2); CHLORIDE 102 mmol/L (98-107); COSMO 277; POTASSIUM 4.2 mmol/L (3.5-5.1); SODIUM 138 mmol/L (136-145); TCO2 25 mmol/L (25-35)
[2017-03-04 07:01] LABS: EOS 2 % (1-10); LYMPHS 10 % (21-51); MONO 7 % (1-9)
[2017-03-04] MEDS: HUMALOG SUBQ SCH ×4 (08:26→20:39)
[2017-03-04] MEDS: TOPROL XL PO SCH (08:26)
[2017-03-04] MEDS: MIRALAX PO SCH ×2 (08:26→22:29)
[2017-03-04] MEDS: FERROUS SULFATE PO SCH (08:26)
--- NOTE | 2017-03-04 15:31 | PROGRESS NOTE ---
DATE: 03/04/2017 SUBJECTIVE: This patient is feeling better, she is just complaining of mild hip pain on the right side, and this is related with the recent surgery. OBJECTIVE: Vital Signs: Temperature 99.6 degrees, pulse 68, respiratory rate 16, blood pressure 119/57, oxygen saturation 99% on room air. HEENT: Head normocephalic. No trauma. PERRLA. Neck: Supple. No JVD. No masses. Central trachea. Chest: Clear to auscultation. No wheezing. No rales. Abdomen: Soft, nontender, nondistended. No hepatosplenomegaly. Extremities: No edema. No clubbing. No cyanosis. She has a right hip dressing that is clean and dry. Neurological: The patient is alert and oriented x3. No focal neurological deficits. LABORATORY: WBC is 13.6, hemoglobin 9.1, hematocrit 31.2, platelet 474,000. Sodium 138, potassium 4.2, chloride 102, bicarbonate 25, BUN 16, creatinine 0.7, glucose 100, calcium 8.1. ASSESSMENT AND PLAN: 1. Right hip fracture status post trochanteric femoral nailing. We will continue with physical therapy. Hopefully at the beginning of this week, we are going to be able to send this patient to a rehab center. She is feeling better. No changes for now. 2. Polycythemia rubra vera. Aware. We have consulted Hematology/Oncology and they already evaluated this patient. We will continue with the same management for now. 3. Anemia, she received she received 1 unit of packed red blood cells and her blood count is better. Today his hemoglobin is 9.1. We will continue to monitor. 4. Type 2 diabetes. Continue with the same management. Hemoglobin A1c 7.5. 5. Hypertension. Continue with the same treatment. Stable. 6. Constipation. Continue with stool softener. 7. Physical deconditioning. Physical therapy on board. Continue with the same treatment. 8. Deep vein thrombosis prophylaxis. Continue with Lovenox. cc: Micha Grewal MD
[2017-03-04] MEDS: NS 1,000 ML IV SCH (17:45)
[2017-03-04] MEDS: COLACE PO SCH (20:38)
[2017-03-05] MEDS: NS 1,000 ML IV SCH (05:42)
[2017-03-05 06:06] LABS: AGAP 8; BASO% 1.4 % (0.0-0.8); BUN 15 mg/dL (8-22); CALCIUM 8.6 mg/dL (8.8-10.2); CHLORIDE 101 mmol/L (98-107); COSMO 277; EOS# 0.42 X1000 (0.0-0.7); EOS% 3.2 % (0.0-10.0); HEMATOCRIT 33.7 % (37.0-47.0); HEMOGLOBIN 9.8 g/dL (12.0-16.0); IMM GRAN# 0.28 X1000 (0.0-0.04); IMM GRAN% 2.2 % (0.0-0.5); LYMPH# 1.46 X1000 (1.2-3.4); LYMPH% 11.2 % (20.5-51.1); MANUAL DIFF NEEDED? YES; MCH 23.6 PG (27-31); MCHC 29.1 g/dL (33-37); MCV 81.2 FL (81-99); MONO% 9.2 % (1.7-9.3); NEUT% 72.8 % (42.2-75.2); PLT 777 X1000 (130-400); RBC 4.15 XMIL (4.2-5.4); SODIUM 138 mmol/L (136-145); TCO2 29 mmol/L (25-35)
[2017-03-05] MEDS: LOVENOX SUBQ SCH (06:19)
[2017-03-05] MEDS: HUMALOG SUBQ SCH ×2 (06:19→10:57)
[2017-03-05 06:47] LABS: EOS 2 % (1-10); LYMPHS 8 % (21-51); MONO 6 % (1-9)
[2017-03-05 06:48] LABS: HYPOCHROM 1+; LARGE PLATELETS 1+
[2017-03-05] MEDS: TOPROL XL PO SCH (09:18)
[2017-03-05] MEDS: FERROUS SULFATE PO SCH (09:18)
[2017-03-05] MEDS: MIRALAX PO SCH (09:19)
[2017-03-05] MEDS: TYLENOL PO SCH (09:19)
--- NOTE | 2017-03-05 11:46 | DISCHARGE SUMMARY ---
ADMISSION DATE: 02/28/2017 DISCHARGE DATE: 03/05/2017 CONSULTATIONS: 1. Rory Degroot MD with orthopedics. 2. Yen Givens MD with Hematology/Oncology. PERTINENT PROCEDURES: 1. Hip/pelvis x-ray showed new right hip fracture. 2. Surgical procedures, right trochanteric femoral nailing by Dr. Degroot. DISCHARGE DIAGNOSES: 1. Right intertrochanteric subtrochanteric femur fracture status post right trochanteric femoral nailing performed by Dr. Rory Degroot. The patient is being transferred to [facility], where she will be weightbearing as tolerated to the right lower extremity and continue on Lovenox for DVT. 2. Polycythemia rubra vera. She has been evaluated by Hematology/Oncology. Continue current management. 3. Anemia. The patient is status post 1 unit of PRBCs. Hemoglobin and hematocrit is stable. 4. Type 2 diabetes uncontrolled. Hemoglobin A1c of 7.5. 5. Hypertension. Continue home regimen. 6. Constipation. Continue stool softener. 7. Physical deconditioning. The patient has been working physical therapy. She will be transported to [facility]. 8. Deep venous thrombosis prophylaxis, continue with Lovenox. HOSPITAL COURSE: Briefly, Ms. Gregorio is an 86-year-old female, with past medical history of polycythemia rubra, hypertension, type 2 diabetes, vitamin D deficiency. Last seen in December of this year for sustaining a left hip fracture. Since then, she has been doing well. Reports shortly after her daughter had left her residence, she tried to get around with her walker. She fell and landed on her right hip. She started to get up and noticed there was a pain in her right hip radiating to the anterior part of her right thigh. She then managed to scoot to where the phone was. She called her daughter who came back, put her in her vehicle and brought her to the ED. X-ray showed a right hip fracture. Orthopedics was consulted. She was started on a pain regimen. She did undergo a right trochanteric femoral nailing with Dr. Rory Degroot. She was initiated on physical therapy. She is weightbearing as tolerated on her right lower extremity. Vacuum Cleaner Operator was consulted for rehab placement. She has been accepted to [facility]. Dr. Yen Givens also saw her in reference to her polycythemia. She will continue on iron. She did have a drop in her hemoglobin and hematocrit status post surgery. She was transfused with 1 unit. She is stable at 9.8 and 33. VITAL SIGNS: At time of discharge, temperature is 98.6, heart rate 64, respirations 16, blood pressure is 148/67, O2 is 99% on room. DISCHARGE DIET: Regular. DISCHARGE MEDICATIONS: As per Dr. Escamilla. FOLLOW UP: Ms. Gregorio is being discharged to [facility] rehab. She can return to the ED for any worsening of symptoms. TIME SPENT: Discharge time 30 minutes. I personally performed a face to face evaluation on this patient, also I review laboratory work and images, patient is stable for discharge, rehabilitation , I agree with the assessment and treatment, anticoagulation, Micha Wright MD. Dictated by MARIIA Tracy for Micha Grewal MD cc: MD Hany Navarro MD MTDD
[2017-03-05 12:47] VITALS: BP 136/85
[2017-03-06] MEDS ORDERED: XARELTO PO SCH (06:00)
== END 2017-03-05 14:01 ==
LOC: ED 19:35 → SUATTDRO 02-28 00:44 → EDIPHOLD 02-28 00:44 → 4N 02-28 01:31 → UNDODISIN 03-04 13:29
PROVIDERS: ATTEND Internal Medicine